=== PATIENT | female | born 1995 ===

== ENCOUNTER 2022-03-22 00:49 | Emergency (ER) | payer OTHER ==
[~2022-03-22] VITALS: Ht 177 cm; Wt 79.4 kg
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
[2022-03-22 01:30] LABS: BILIRUBIN,URINE NEGATIVE (NEGATIVE); CLARITY,URINE CLEAR; COLOR,URINE YELLOW; GLUCOSE, URINE (UA) NEGATIVE (NEGATIVE); KETONES,URINE NEGATIVE (NEGATIVE); LEUKOCYTE ESTERASE ,URINE 1+ (NEGATIVE); NITRITE,URINE NEGATIVE (NEGATIVE); PH,URINE 7.5 (5-9); PROTEIN,URINE NEGATIVE (NEGATIVE)
[2022-03-22] MEDS ORDERED: ACETAMINOPHEN 500 MG TAB (TYLENOL) PO ONE (01:30)
[2022-03-22 01:37] LABS: BACTERIA,URINE TRACE /HPF; SQUAMOUS EPITHELIAL CELL,UR 0-2 /HPF
[2022-03-22] MEDS ORDERED: CEPH500T PO (02:07)
[2022-03-22 02:14] VITALS: BP 117/81
[2022-03-22] MEDS ORDERED: CEPHALEXIN 250 MG (KEFLEX) CAP PO ONE (02:15)
== END 2022-03-22 02:14 | disposition home or self-care (01) ==
LOC: ER 00:55
DX: O23.42 Unspecified infection of urinary tract in pregnancy, second trimester (principal); N39.0 Urinary tract infection, site not specified; Z3A.15 15 weeks gestation of pregnancy
CPT/HCPCS: 81000; 87088; 99283

== ENCOUNTER → 2022-08-19 | Outpatient (CLI) | payer MEDICAID, OTHER ==
[~2022-08-19] MED LIST: CEPH500T PO
== END ==
LOC: LABNPT 16:00
PROVIDERS: ATTEND Nurse Practitioner Women's Health
DX: R80.9 Proteinuria, unspecified (principal)
CPT/HCPCS: 82570; 84156

== ENCOUNTER 2022-08-30 17:03 | Outpatient (CLI) | payer MEDICAID ==
[2022-08-30 17:35] VITALS: BP 139/76
[2022-08-30 18:20] LABS: BILIRUBIN,URINE NEGATIVE (NEGATIVE); CLARITY,URINE CLEAR; COLOR,URINE YELLOW; GLUCOSE, URINE (UA) NEGATIVE (NEGATIVE); KETONES,URINE NEGATIVE (NEGATIVE); LEUKOCYTE ESTERASE ,URINE NEGATIVE (NEGATIVE); NITRITE,URINE NEGATIVE (NEGATIVE); PROTEIN,URINE NEGATIVE (NEGATIVE)
[2022-08-30 18:27] LABS: BACTERIA,URINE TRACE /HPF
--- NOTE | 2022-08-30 19:28 | OB Triage Report ---
Standard Progress Note Progress Notes/Assess & Plan Date Seen by a Provider: Aug 30, 2022 Time Seen by a Provider: 19:00 Expected Date of Delivery: Sep 04, 2022 Gestational Age in Weeks: 39 Gestational Age in Days: 2 LMP/PILAR Comment: As above Progress/Assessment & Plan DOCUMENT PREPARER MICROFILMING Staff Note: CC: Contractions HPI: Primigravida @ 39 2/7 weeks came in for labor check, seen recently in office and told was 1 cm dilated. On L&D patient without bleeding or LOF, Reactive NST with mild-mod irregular contractions, Cateory I FHR tracing, Cervix per L&D RN FT and long, BP stable with no sx/sx of preeclampsia. Patient not in labor, released to home with routine labor and kick count precautions. Follow up routine OB as directed. Final Diagnosis Primigravida 39 weeks Contractions, not in labor MALVIN CARPENTER DO Aug 30, 2022 19:28
== END 2022-08-30 19:10 ==
LOC: LDRP 17:03 → WSo 17:03
PROVIDERS: ATTEND Obstetrics & Gynecology
DX: O62.9 Abnormality of forces of labor, unspecified (principal); Z3A.39 39 weeks gestation of pregnancy
CPT/HCPCS: 81000; 87088

== ENCOUNTER → 2022-09-01 | Outpatient (CLI) | payer MEDICAID | LOC: LABNPT 11:01 | PROVIDERS: ATTEND Nurse Practitioner Women's Health | DX: R80.9 Proteinuria, unspecified (principal) | CPT/HCPCS: 82570; 84156 ==

== ENCOUNTER 2022-09-13 02:01 | Emergency (ER) | payer MEDICAID ==
[~2022-09-13] VITALS: Ht 170 cm; Wt 81.0 kg
[2022-09-13 02:54] LABS: BASOPHILS % (AUTO) 0 % (0-10); EOSINOPHILS # (AUTO) 0.2 10^3/uL (0.0-0.3); EOSINOPHILS % (AUTO) 2 % (0-10); HEMATOCRIT 31 % (35-52); HEMOGLOBIN 10.2 g/dL (11.5-16.0); LYMPHOCYTES # (AUTO) 1.8 10^3/uL (1.0-4.0); LYMPHOCYTES % (AUTO) 18 % (12-44); MEAN CORPUSCULAR HEMOGLOBIN 28 pg (25-34); MEAN CORPUSCULAR HGB CONC 33 g/dL (32-36); MEAN CORPUSCULAR VOLUME 84 fL (80-99); MEAN PLATELET VOLUME 9.2 fL (9.0-12.2); MONOCYTES # (AUTO) 0.5 10^3/uL (0.0-1.0); MONOCYTES % (AUTO) 5 % (0-12); NEUTROPHILS # (AUTO) 7.7 10^3/uL (1.8-7.8); NEUTROPHILS % (AUTO) 75 % (42-75); PLATELET COUNT 256 10^3/uL (130-400); WHITE BLOOD COUNT 10.2 10^3/uL (4.3-11.0)
[2022-09-13 03:01] LABS: INR 0.8 (0.8-1.4); PROTHROMBIN TIME PATIENT 11.4 SEC (12.2-14.7)
[2022-09-13 03:02] LABS: ALBUMIN 3.2 GM/DL (3.2-4.5); POTASSIUM 3.9 MMOL/L (3.6-5.0)
[2022-09-13 03:03] LABS: CALCIUM 8.8 MG/DL (8.5-10.1)
[2022-09-13 03:05] LABS: TOTAL PROTEIN 6.2 GM/DL (6.4-8.2)
[2022-09-13 03:06] LABS: BILIRUBIN,TOTAL 0.1 MG/DL (0.1-1.0)
[2022-09-13 03:08] LABS: CREATININE SERUM 0.68 MG/DL (0.60-1.30)
[2022-09-13 03:11] LABS: URIC ACID 6.7 MG/DL (2.6-7.2)
[2022-09-13 03:21] LABS: BILIRUBIN,URINE NEGATIVE (NEGATIVE); CLARITY,URINE CLEAR; COLOR,URINE YELLOW; GLUCOSE, URINE (UA) NEGATIVE (NEGATIVE); KETONES,URINE NEGATIVE (NEGATIVE); LEUKOCYTE ESTERASE ,URINE NEGATIVE (NEGATIVE); NITRITE,URINE NEGATIVE (NEGATIVE); PROTEIN,URINE NEGATIVE (NEGATIVE)
--- NOTE | 2022-09-13 03:22 | ED General ---
General Chief Complaint: (<6 weeks) Stated Complaint: VAGINAL PAIN - CHILLS - WADE - BLURRED VISION Nursing Triage Note: C/O VAGINAL PAIN/SWELLING, LIGHTHEADED, BLURRED VISION, VAGINAL BLEEDING S/P VAGINAL 09/10/22. HX PREECLAMPSIA Source of Information: Patient Exam Limitations: No Limitations (JAQUI MARTINEZ) History of Present Illness Date Seen by Provider: Sep 13, 2022 Time Seen by Provider: 02:27 Initial Comments This is a 27yo day #3 who presents for vaginal pain, chills, headache, and blurred vision since yesterday 12SEP2022. Accompanied by saravanan. Patient had induction of labor with vaginal delivery on 10SEP2022, complicated by preeclampsia and 2nd degree tear. Preeclampsia symptoms included head ache, lower extremity edema, and blurred vision which resolved following vaginal delivery, and she had no symptoms the next day. On , patient endorses symptoms of chills, head ache, blurred vision, weakness, and bilateral upper quadrant abdominal pain. Patient also endorses a stinging and itching pain in her right labia. Endorses light pink vaginal discharge. Pt did have a bowel movement since delivery. Pt has taken 400mg of Ibuprofen at 2100 which has not alleviated vaginal symptoms. Denies nausea or vomiting. Pt reports her local ObGyn is Dr. Valles, and she delivered at [facility]. Timing/Duration: 1 Day Severity: Moderate Associated Systoms: No Chest Pain, No Diaphoresis; Headaches; No Loss of Appetite, No Malaise, No Nausea/Vomiting, No Seizure, No Shortness of Air, No Syncope; Weakness (JAQUI MARTINEZ) Allergies and Home Medications Allergies Coded Allergies: No Known Drug Allergies (Unverified , 03/22/22) Patient Home Medication List Home Medication List Reviewed: Yes (ALPHONSO SORIANO MD) No Active Prescriptions or Reported Meds Review of Systems Review of Systems Constitutional: chills; No diaphoresis, No dizziness, No fever, No malaise; weakness EENTM: blurred vision; No vision loss Respiratory: no symptoms reported Cardiovascular: no symptoms reported Gastrointestinal: abdominal pain (bilateral upper quadrants); No constipation, No diarrhea, No nausea, No vomiting Genitourinary: other (vaginal itching and stinging pain) : No (Delivered on 10SEP2022) Psychiatric/Neurological: Headache (JAQUI MARTINEZ) Past [id number] Hx Patient Social History Tobacco Use?: No Substance use?: No Alcohol Use?: No Pt feels they are or have been: No (JAQUI MARTINEZ) Immunizations Up To Date First/Initial COVID19 Vaccinat: x2 Second COVID19 Vaccination Dawson: x2 Third COVID19 Vaccination Date: x2 (JAQUI MARTINEZ) Past Medical History Surgery/Hospitalization HX: denies (JAQUI MARTINEZ) Physical Exam Vital Signs Vital Signs - First Documented 09/13/22 02:22 Temp 36.4 Pulse 94 Resp 16 B/P (MAP) 147/95 (112) Pulse Ox 98 O2 Delivery Room Air (ALPHONSO SORIANO MD) Vital Signs Capillary Refill : Less Than 3 Seconds (JAQUI MARTINEZ) Height, Weight, BMI Height: '" Weight: lbs. oz. kg; 28.00 BMI Method: General Appearance: No Apparent Distress, WD/WN HEENT: Pharynx Normal Respiratory: Chest Non Tender, Lungs Clear, Normal Breath Sounds, No Accessory Muscle Use, No Respiratory Distress Cardiovascular: Regular Rate, Rhythm, No Murmur, Normal Peripheral Pulses, Other (2+ pitting edema of bilateral lower extremities) Gastrointestinal: Normal Bowel Sounds, Tenderness (bilateral upper quadrants) Genital/Rectal: Other (Vaginal exam performed by Dr. Soriano with Neela as thoroughbred horse farm manager and Jaqui Martinez MS4 recording the exam findings. Multiple superficial lacerations and abrasions of the vaginal introitus, evident mixed areas of healing and some open wounds. Stitches from 2nd degree laceration are intact.) Extremity: Normal Capillary Refill, Normal Range of Motion, Non Tender, Pedal Edema (2+ lower extremity edema) Neurologic/Psychiatric: Alert, Oriented x3, No Motor/Sensory Deficits, Normal Mood/Affect Skin: Normal Color, Warm/Dry (JAQUI MARTINEZ) Progress/Results/Core Measures Suspected Sepsis SIRS Temperature: Pulse: 94 Respiratory Rate: 16 Laboratory Tests 09/13/22 02:42: White Blood Count 10.2 Blood Pressure 147 /95 Mean: 112 Laboratory Tests 09/13/22 02:42: Creatinine 0.68, INR Comment 0.8, Platelet Count 256, Total Bilirubin 0.1 (JAQUI MARTINEZ) Results/Orders Lab Results Laboratory Tests Test 09/13/22 02:42 09/13/22 03:00 Range/Units White Blood Count 10.2 4.3-11.0 10^3/uL Red Blood Count 3.70 L 3.80-5.11 10^6/uL Hemoglobin 10.2 L 11.5-16.0 g/dL Hematocrit 31 L 35-52 % Mean Corpuscular Volume 84 80-99 fL Mean Corpuscular Hemoglobin 28 25-34 pg Mean Corpuscular Hemoglobin Concent 33 32-36 g/dL Red Cell Distribution Width 13.8 10.0-14.5 % Platelet Count 256 130-400 10^3/uL Mean Platelet Volume 9.2 9.0-12.2 fL Immature Granulocyte % (Auto) 1 % Neutrophils (%) (Auto) 75 42-75 % Lymphocytes (%) (Auto) 18 12-44 % Monocytes (%) (Auto) 5 0-12 % Eosinophils (%) (Auto) 2 0-10 % Basophils (%) (Auto) 0 0-10 % Neutrophils # (Auto) 7.7 1.8-7.8 10^3/uL Lymphocytes # (Auto) 1.8 1.0-4.0 10^3/uL Monocytes # (Auto) 0.5 0.0-1.0 10^3/uL Eosinophils # (Auto) 0.2 0.0-0.3 10^3/uL Basophils # (Auto) 0.0 0.0-0.1 10^3/uL Immature Granulocyte # (Auto) 0.1 0.0-0.1 10^3/uL Prothrombin Time 11.4 L 12.2-14.7 SEC INR Comment 0.8 0.8-1.4 Sodium Level 139 135-145 MMOL/L Potassium Level 3.9 3.6-5.0 MMOL/L Chloride Level 104 98-107 MMOL/L Carbon Dioxide Level 23 21-32 MMOL/L Anion Gap 12 5-14 MMOL/L Blood Urea Nitrogen 12 7-18 MG/DL Creatinine 0.68 0.60-1.30 MG/DL Estimat Glomerular Filtration Rate 122 BUN/Creatinine Ratio 18 Glucose Level 95 70-105 MG/DL Uric Acid 6.7 2.6-7.2 MG/DL Calcium Level 8.8 8.5-10.1 MG/DL Corrected Calcium 9.4 8.5-10.1 MG/DL Total Bilirubin 0.1 0.1-1.0 MG/DL Aspartate Amino Transf (AST/SGOT) 57 H 5-34 U/L Alanine Aminotransferase (ALT/SGPT) 65 H 0-55 U/L Alkaline Phosphatase 112 40-136 U/L Lactate Dehydrogenase 316 H 125-220 U/L Total Protein 6.2 L 6.4-8.2 GM/DL Albumin 3.2 3.2-4.5 GM/DL Free Thyroxine 0.78 0.70-1.48 NG/DL TSH Aragon Testing 5.46 H 0.35-4.94 UIU/ML Urine Color YELLOW Urine Clarity CLEAR Urine pH 7.0 5-9 Urine Specific Mcbee <=1.005 1.016-1.022 Urine Protein NEGATIVE NEGATIVE Urine Glucose (UA) NEGATIVE NEGATIVE Urine Ketones NEGATIVE NEGATIVE Urine Nitrite NEGATIVE NEGATIVE Urine Bilirubin NEGATIVE NEGATIVE Urine Urobilinogen 0.2 < = 1.0 MG/DL Urine Leukocyte Esterase NEGATIVE NEGATIVE Urine RBC (Auto) 1+ H NEGATIVE Urine RBC 2-5 H /HPF Urine WBC RARE /HPF Urine Squamous Epithelial Cells 0-2 /HPF Urine Crystals NONE /LPF Urine Bacteria NEGATIVE /HPF Urine Casts NONE /LPF Urine Mucus NEGATIVE /LPF Urine Culture Indicated NO (ALPHONSO SORIANO MD) My Orders Orders - ALPHONSO SORIANO MD Cbc With Automated Diff (09/13/22 02:33) Comprehensive Metabolic Panel (09/13/22 02:33) Protime With Inr (09/13/22 02:33) Thyroid Analyzer (09/13/22 02:33) Ua Culture If Indicated (09/13/22 02:33) Uric Acid (09/13/22 02:33) LDH (09/13/22 02:33) Ed Iv/Invasive Line Start (09/13/22 02:33) Free T4 (Free Thyroxine) (09/13/22 02:42) Lidocaine 2% Viscous 15 Ml (Xylocaine Vi (09/13/22 04:00) Lidocaine 2% Viscous 15 Ml (Xylocaine Vi (09/13/22 04:00) (ALPHONSO SORIANO MD) Medications Given in ED (ALPHONSO SORIANO MD) Vital Signs/I&O 09/13/22 09/13/22 02:22 04:18 Temp 36.4 36.6 Pulse 94 84 Resp 16 16 B/P (MAP) 147/95 (112) 134/92 Pulse Ox 98 97 O2 Delivery Room Air Room Air (ALPHONSO SORIANO MD) Vital Signs/I&O Capillary Refill : Less Than 3 Seconds (JAQUI MARTINEZ) Blood Pressure Mean: 112 Progress Note : Progress Note Patient states her induction was performed because there was concern for preeclampsia. She was evaluated in the ER for possible preeclampsia. Blood pressure did trend down without any specific treatment hand was not exceeding thresholds mandating treatment. Lab evaluation including CBC, CMP, uric acid, urinalysis, LDH, and coag labs was pursued. Each of these studies were reviewed. Values were not concerning for preeclampsia. Perineal exam was performed with female thoroughbred horse farm manager and revealed multiple shallow lacerations on the right vaginal introitus and vaginal wall. Episiotomy sutures were intact. There was minor lochia with bright red blood as expected for status. Patient had tenderness in the area of the's lacerations. There was no overt erythema, purulent drainage, or swelling to suggest infection. Straight cath was obtained at the time of the perineal exam to obtain a clean urine specimen. Urinalysis was unremarkable. Patient was provided with lidocaine jelly for anesthetic at the perineum and vaginal introitus. She did acknowledge that her symptoms may be in part due to lack of pain medications today. She was advised to follow-up with Dr. VALLES in the clinic for care. There did not appear to be any acute visual deficit by exam or history. She believes her blurry vision to be due to fatigue and lack of sleep. She was advised to pursue further investigations this did not resolve soon. (ALPHONSO SORIANO MD) Departure Impression Primary Impression: Hypertension Qualified Codes: I10 - Essential (primary) hypertension Additional Impressions: Vaginal laceration, Vaginal pain Blurry vision, bilateral Disposition: 01 HOME, SELF-CARE Condition: Improved Departure-Patient Inst. Decision time for Depature: 04:13 (ALPHONSO SORIANO MD) Referrals: NO,LOCAL PHYSICIAN (PCP/Family) Primary Care Physician Patient Instructions: High Blood Pressure ED Add. Discharge Instructions: For your pain you may take ibuprofen up to 600 mg every 6 hours as needed and Tylenol (acetaminophen) up to 1000 mg every 6 hours as needed. You may continue breast-feeding on these medications. Monitor your blood pressure with a follow-up visit to either Dr. VALLES or your primary care provider this week. Please call Wednesday to schedule an appointment time or a time to stop in and have your blood pressure checked. To help control blood pressure be sure to drink plenty of water and avoid excessive salt. Avoid stimulants that can elevate your blood pressure such as excessive caffeine, decongestant medications, energy drinks, workout supplements, etc. You may help reduce pain of the vaginal lacerations by applying a thin layer of the viscous lidocaine to the sore areas, particularly before urinating or having bowel movements. Until these wounds heal, may be beneficial to rinse your perineum with warm water and blot dry rather than wiping. Contact Dr. VALLES or your delivering adult education instructor if the symptoms worsen or are not improving with the measures described above. Return to the ER if you have worsening symptoms despite following these instructions. All discharge instructions reviewed with patient and/or family. Voiced understanding. Scripts No Active Prescriptions or Reported Meds Medical Student Attestation and Attending Note: I have personally interviewed and examined this patient along with Jaqui Martinez, MS 4. I have reviewed student documentation including history, physical, and assessments. I agree with the documentation except where otherwise noted. Exam: General: Alert, oriented, no acute distress, well developed HEENT: Normocephalic and atraumatic Heart: Regular rate and rhythm without murmur Lungs: Clear to auscultation bilaterally with normal effort Abdomen: Soft, nontender, nondistended, normal bowel sounds Genital: Minor bloody lochia as expected for status, shallow lacerations and abrasions noted to the right vaginal introitus and vaginal wall. No swelling, erythema, or purulent drainage to suggest infection. Perineal laceration sutures intact. Neuropsych: Alert, oriented, no focal deficits Skin: Warm and dry without rashes (ALPHONSO SORIANO MD) Copy Copies To 1: FABRICIO VALLES ABRAHAM Sep 13, 2022 03:22 ALPHONSO SORIANO MD Sep 13, 2022 04:17
[2022-09-13 03:31] LABS: TSH (THYROID ANALYZER) 5.46 UIU/ML (0.35-4.94)
[2022-09-13 03:34] LABS: BACTERIA,URINE NEGATIVE /HPF; SQUAMOUS EPITHELIAL CELL,UR 0-2 /HPF; WBC,URINE RARE /HPF
[2022-09-13] MEDS ORDERED: LIDOCAINE 2% VISCOUS 15 ML UDC PO ONE ×2 (04:00)
[2022-09-13 04:06] LABS: FREE T4 (FREE THYROXINE) 0.78 NG/DL (0.70-1.48)
[2022-09-13 04:18] VITALS: BP 134/92
== END 2022-09-13 04:24 | disposition home or self-care (01) ==
LOC: ER 02:01 → EDUNIT# 02:01 → ER 04:24
DX: O9A.23 Injury, poisoning and certain other consequences of external causes complicating the puerperium (principal); S31.41XA Laceration without foreign body of vagina and vulva, initial encounter; O16.5 Unspecified maternal hypertension, complicating the puerperium; X58.XXXA Exposure to other specified factors, initial encounter
CPT/HCPCS: 36415; 51702; 80053; 81000; 83615; 84439; 84443; 84550; 85025; 85610